=== PATIENT | male | born 1945 | race Caucasian/White ===

== ENCOUNTER → 2017-03-10 | Outpatient (CLI) | payer OTHER ==
[~2017-03-10] MED LIST: AMOX1TAB64 PO; ASPI-496 PO; CARV3.122 PO; MELO-184 PO; NITR0.4T SL; ROSU20TA PO; TEST1.25 TP; TRAM-28 PO
== END | disposition home or self-care (01) ==
LOC: CVU 13:44
PROVIDERS: ATTEND Internal Medicine Cardiovascular Disease
DX: I25.5 Ischemic cardiomyopathy (principal)
CPT/HCPCS: C8929

== ENCOUNTER 2017-11-20 12:16 | Emergency (ER) | payer OTHER ==
[~2017-11-20] VITALS: Ht 172.7 cm; Wt 120.0 kg
[~2017-11-20 12:16] MED LIST changes: +CHOL500045 PO; +FAMC500T33 PO; +KAVINACE PO; -MELO-184 PO; +MELO15TA24 PO; +RESV250C2 PO; -TRAM-28 PO; +TRAM-47 PO
[2017-11-20 13:05] LABS: ANION GAP 5 mmol/L (5-15); CHLORIDE 108 mmol/L (98-107)
[2017-11-20 13:06] LABS: ALANINE AMINOTRANSFERASE 19 U/L (12-78); ALBUMIN 3.4 g/dL (3.4-5.0); CALCIUM 9.7 mg/dL (8.5-10.1); CREATININE 1.42 mg/dL (0.7-1.3)
[2017-11-20 13:08] LABS: ALKALINE PHOSPHATASE 51 U/L (45-117); BILIRUBIN,TOTAL 0.8 mg/dL (0.2-1.0)
[2017-11-20 13:13] LABS: MEAN CORPUSCULAR HEMOGLOBIN 30.7 pg (27.5-34.5); MEAN CORPUSCULAR HGB CONC 33.8 g/dL (33.2-36.2); MEAN CORPUSCULAR VOLUME 90.8 fL (81-97); PLATELET COUNT 137 x10^3/uL (130-400); RED BLOOD COUNT 5.52 x10^6/uL (4.38-5.82); RED CELL DISTRIBUTION WIDTH 13.6 % (9.4-14.8)
[2017-11-20 13:14] LABS: BASOPHILS # (AUTO) 0.02 x10^3/uL (0-0.1); BASOPHILS % (AUTO) 0 % (0-1); EOSINOPHILS # (AUTO) 0.09 x10^3/uL (0-0.4); EOSINOPHILS % (AUTO) 2 % (1-7); LYMPHOCYTES # (AUTO) 1.46 x10^3/uL (1-3.4); LYMPHOCYTES % (AUTO) 28 % (22-44); MD SCAN; MONOCYTES # (AUTO) 0.26 x10^3/uL (0.2-0.8); MONOCYTES % (AUTO) 5 % (2-9); NEUTROPHILS # (AUTO) 3.34 x10^3/uL (1.8-6.8); NEUTROPHILS % (AUTO) 65 % (42-75)
[2017-11-20 13:45] VITALS: BP 151/77
== END 2017-11-20 14:28 | disposition home or self-care (01) ==
LOC: ED 14:00
DX: I49.3 Ventricular premature depolarization (principal); R00.8 Other abnormalities of heart beat; N18.9 Chronic kidney disease, unspecified; I25.2 Old myocardial infarction; I50.9 Heart failure, unspecified
CPT/HCPCS: 36415; 71045; 80053; 83735; 85025; 93005; 99285

== ENCOUNTER → 2018-01-06 | Outpatient (CLI) | payer OTHER | LOC: CVU 12:10 | PROVIDERS: ATTEND Internal Medicine Cardiovascular Disease | DX: I25.10 Atherosclerotic heart disease of native coronary artery without angina pectoris (principal); I25.5 Ischemic cardiomyopathy; I25.2 Old myocardial infarction | CPT/HCPCS: C8929 ==

== ENCOUNTER → 2018-02-23 | Outpatient (CLI) | payer OTHER | END | disposition home or self-care (01) | LOC: CFH 11:21 | PROVIDERS: ATTEND Nurse Practitioner | DX: R05 Cough (principal); I25.10 Atherosclerotic heart disease of native coronary artery without angina pectoris; I13.0 Hypertensive heart and chronic kidney disease with heart failure and stage 1 through stage 4 chronic kidney disease, or unspecified chronic kidney disease; N18.9 Chronic kidney disease, unspecified; I50.9 Heart failure, unspecified | CPT/HCPCS: 71046 ==

== ENCOUNTER → 2018-07-05 | Outpatient (CLI) | payer OTHER | END | disposition home or self-care (01) | LOC: CVU 09:46 | PROVIDERS: ATTEND Internal Medicine Cardiovascular Disease | DX: I34.0 Nonrheumatic mitral (valve) insufficiency (principal); I25.2 Old myocardial infarction | CPT/HCPCS: C8929; Q9957 ==

== ENCOUNTER → 2019-08-11 | Outpatient (CLI) | payer MEDICARE ==
[~2019-08-11] MED LIST changes: -NITR0.4T SL; +NITR0.4T41 SL; -ROSU20TA PO; +ROSU20TA2 PO
== END | disposition home or self-care (01) ==
LOC: CVU 12:13
PROVIDERS: ATTEND Internal Medicine Cardiovascular Disease
DX: I08.3 Combined rheumatic disorders of mitral, aortic and tricuspid valves (principal); I25.5 Ischemic cardiomyopathy; I25.2 Old myocardial infarction
CPT/HCPCS: C8929; Q9957